=== PATIENT | male | born 1965 | race Caucasian/White ===

== ENCOUNTER 2017-11-04 11:16 | Emergency (ER) | payer MEDICARE, OTHER ==
[~2017-11-04] VITALS: Ht 182.9 cm; Wt 107.5 kg
[~2017-11-04 11:16] MED LIST: ACET325 PO; ALBU90OI INH; AMLO5 PO; BUSP5 PO; CYCL10 PO; DOXE25 PO; Desyrel150 MG; ENOX40I SC; FLUSAL1005 INH; HYDACE10B PO; HYDACE5 PO; LAMO100 PO; LOSA25 PO; LOSA50 PO; METH5 PO; OXYACE5T PO; RANI150 PO; RXTRAM50 PO; TRAM50 PO; VENL75ER PO; Zanaflex2 M1 PO
[2017-11-04] MEDS ORDERED: AMLO10 PO (11:51)
[2017-11-04] MEDS ORDERED: LAMO25 PO (11:52)
[2017-11-04] MEDS ORDERED: FLUO10 PO (11:52)
[2017-11-04] MEDS ORDERED: QUET300 PO (11:52)
[2017-11-04] MEDS ORDERED: HYDCHL25 PO (11:52)
[2017-11-04] MEDS ORDERED: METO100ER PO (11:52)
== END 2017-11-04 12:22 | disposition home or self-care (01) ==
LOC: ER 11:16
DX: G47.00 Insomnia, unspecified (principal); F31.9 Bipolar disorder, unspecified; Z91.14 Patient's other noncompliance with medication regimen; E11.9 Type 2 diabetes mellitus without complications; Z88.6 Allergy status to analgesic agent; Z88.8 Allergy status to other drugs, medicaments and biological substances; Z79.899 Other long term (current) drug therapy
CPT/HCPCS: 99283

== ENCOUNTER → 2022-04-19 | Outpatient (CLI) | payer OTHER ==
[~2022-04-19] MED LIST changes: +AMLO10 PO; +FLUO10 PO; +HYDCHL25 PO; +LAMO25 PO; +METO100ER PO; +QUET300 PO
== END | disposition home or self-care (01) ==
LOC: LAB SHORT 09:36 → LAB 09:36
DX: L08.9 Local infection of the skin and subcutaneous tissue, unspecified (principal)
CPT/HCPCS: 87070; 87075; 87077; 87147; 87186; 87205

== ENCOUNTER 2023-03-25 07:03 | Day surgery (SDC) | payer OTHER ==
[2023-03-25] VITALS (15 sets, daily range): BP systolic 90–134; BP diastolic 62–80
[~2023-03-25] VITALS: Ht 185.4 cm; Wt 116.6 kg
[~2023-03-25 07:03] MED LIST changes: +ABILIFY MYCITE10 M2 PO; +BUSPIRONE HCL30 M1 PO; +DOXE10 PO; +FLUC150A PO; +IRON18 MG PO; +METO50ER; +MONT10T PO; +OMEP20ER PO; +TAMS.4ER PO
[2023-03-25] MEDS ORDERED: ALPR.5 PO (07:23)
--- NOTE | 2023-03-25 07:35 | NUR ---
Ambulatory in Day Surgery History, Chart, Medications and Allergies reviewed before start of procedure.Pt signed refusal of blood products.Pt states that he took a Xanax this am.Lungs clear T/O to Auscultation. Patient confirms NPO status and agrees with scheduled surgery. Patient states colon prep results clear. Patient States Post-Procedure ride home has been arranged.
--- NOTE | 2023-03-25 07:52 | NUR ---
03/25/23 0752 Marti Chopra HISTORY, CHART, MEDICATIONS AND ALLERGIES REVIEWED BEFORE START OF PROCEDURE. PATIENT CONFIRMS NPO STATUS AND AGREES WITH SCHEDULED PROCEDURE. 3-LEAD EKG REVIEWED WITH PHYSICIAN PRIOR TO START OF PROCEDURE. MONITOR INTACT WITH CONTINUOUS PULSE OXIMETRY,CAPNOGRAPHY, 3-LEAD EKG, INTERMITTENT BP. SUPPLEMENTAL O2 TO BE TITRATED THROUGHOUT PROCEDURE TO MAINTAIN O2 SATURATION ABOVE 90%. PATIENT DETERMINED TO BE ASA APPROPRIATE FOR PROPOFOL SEDATION PRIOR TO START OF PROCEDURE BY DR. HUNTER
--- NOTE | 2023-03-25 08:50 | NUR ---
Patient up to Ambulate independently. Gait steady. Discharge instructions reviewed with patient. Patient verbalizes understanding. Copy given to patient to take home. Patient States Post-Procedure ride home has been arranged. Discharged via wheelchair to private car for ride home.
== END 2023-03-25 08:50 | disposition home or self-care (01) ==
LOC: ORSCMMR 07:03 → ORD 08:00 → ORSCMMR 08:00
PROVIDERS: Internal Medicine Gastroenterology
PROC: 0DJD8ZZ Inspection of Lower Intestinal Tract, Via Natural or Artificial Opening Endoscopic (ICD-10-PCS; principal; 2023-03-25 08:00)
DX: D50.9 Iron deficiency anemia, unspecified (principal); F41.9 Anxiety disorder, unspecified; I10 Essential (primary) hypertension; K28.9 Gastrojejunal ulcer, unspecified as acute or chronic, without hemorrhage or perforation; F32.A Depression, unspecified; K21.9 Gastro-esophageal reflux disease without esophagitis; Z98.84 Bariatric surgery status; Z79.899 Other long term (current) drug therapy
CPT/HCPCS: J2704; J7120